=== PATIENT | female | born 1985 | race Caucasian/White ===

== ENCOUNTER 2017-10-16 22:45 | Inpatient (IN) | payer OTHER ==
[2017-10-17 01:03] LABS: ADD MAN DIFF? NO
[2017-10-17 01:15] LABS: BASOPHILS % 0.2 % (0.0-2.0); EOSINOPHILS % 0.3 % (0.0-7.0); HEMATOCRIT 38.3 % (37.0-47.0); HEMOGLOBIN 14.2 g/dl (12.0-16.0); IMMATURE GRANS #M 0.06 10^3/ul; IMMATURE GRANS % (M) 0.5 %; LYMPHOCYTES # 0.8 10^3/ul (0.8-2.9); LYMPHOCYTES % 5.9 % (15.0-51.0); MEAN CORPUSCULAR HEMOGLOBIN 32.2 pg (29.0-33.0); MEAN CORPUSCULAR HGB CONC 37.1 g/dl (32.0-37.0); MEAN CORPUSCULAR VOLUME 86.8 fl (82.0-101.0); MEAN PLATELET VOLUME 11.4 fl (7.4-10.4); MONOCYTE # 0.7 10^3/ul (0.3-0.9); MONOCYTES % 5.2 % (0.0-11.0); NEUTROPHIL # 11.6 10^3/ul (1.6-7.5); NEUTROPHILS % 87.9 % (39.0-77.0); PLATELET COUNT 219 10^3/UL (140-415); RED BLOOD COUNT 4.41 10^6/ul (4.20-5.40); RED CELL DISTRIBUTION WIDTH 13.6 % (11.5-14.5)
[2017-10-17 01:15] LABS: WHITE BLOOD COUNT 13.2 10^3/ul (4.8-10.8)
[2017-10-17 01:16] LABS: ADD UMIC YES; UR ASCORBIC ACID NEGATIVE (NEGATIVE); UR BILIRUBIN (Dip) NEGATIVE (NEGATIVE); UR BLOOD (Dip) NEGATIVE (NEGATIVE); UR CLARITY CLEAR (CLEAR); UR COLOR YELLOW (YELLOW); UR GLUCOSE (Dip) NEGATIVE (NEGATIVE); UR KETONES (Dip) TRACE mg/dL (NEGATIVE); UR LEUKOCYTE ESTERASE (Dip) NEGATIVE Leu/ul (NEGATIVE); UR MUCUS FEW /HPF (NONE SEEN); UR NITRITE (Dip) NEGATIVE (NEGATIVE); UR RBC 3 /HPF (0-5); UR SPECIFIC GRAVITY (Dip) 1.034 (1.003-1.030); UR SQUAMOUS EPITHELIAL CELL FEW /HPF (FEW); UR TOTAL PROTEIN (Dip) 2+ mg/dl (NEGATIVE); UR UROBILINOGEN (Dip) NEGATIVE (NEGATIVE); UR WBC 2 /HPF (0-5)
[2017-10-17 01:38] LABS: ALANINE AMINOTRANSFERASE 33 IU/L (13-69); ALBUMIN 4.6 g/dl (3.3-4.9); ALBUMIN/GLOBULIN RATIO 0.86; ALKALINE PHOSPHATASE 96 IU/L (42-121); ANION GAP 19 (8-16); ASPARTATE AMINO TRANSFERASE 104 IU/L (15-46); BILIRUBIN,INDIRECT 0.9 mg/dl (0-1.1); BILIRUBIN,TOTAL 0.9 mg/dl (0.2-1.3); BLOOD UREA NITROGEN 11 mg/dl (7-20); CALCIUM 7.2 mg/dl (8.4-10.2); CARBON DIOXIDE 21 mmol/L (21-31); CHLORIDE 102 mmol/L (97-110); CREATININE 0.54 mg/dl (0.44-1.00); GLUCOSE 124 mg/dl (70-220); LIPASE 1998 U/L (23-300); POTASSIUM 5.3 mmol/L (3.5-5.1); SODIUM 137 mmol/L (135-144); TOTAL PROTEIN 9.9 g/dl (6.1-8.1)
[2017-10-17] MEDS: SOD CHLORIDE 0.9% 1,000 ML IV (05:40)
[2017-10-17] MEDS: DEXTROSE 5%-0.9% NACL 1,000 ML IV ×2 (06:48→16:08)
[2017-10-17] MEDS: ACETAMINOPHEN 325 MG TAB PO ×3 (06:48→21:23)
[2017-10-17] MEDS ORDERED: METOCLOPRAMIDE 10 MG INJ IV (19:00)
[2017-10-17] MEDS ORDERED: ONDANSETRON 4 MG INJ IV (19:00)
[2017-10-17] MEDS ORDERED: NACL 0.9% 3 ML SYG IV (19:00)
[2017-10-17] MEDS ORDERED: morphine 2 MG INJ IV (19:00)
[2017-10-17] MEDS: CALCIUM GLUCONATE 10% 1 GM in DEXTROSE 5% 100 ML IVPB (19:48)
[2017-10-17] MEDS: MEROPENEM 500MG/50 ML (PMX) 50 ML IVPB (21:24)
[2017-10-18] MEDS: DEXTROSE 5%-0.9% NACL 1,000 ML IV ×3 (03:31→21:36)
[2017-10-18] MEDS: PANTOPRAZOLE 40 MG INJ IV (05:13)
[2017-10-18 05:48] LABS: ADD MAN DIFF? NO
[2017-10-18 05:58] LABS: WHITE BLOOD COUNT 9.3 10^3/ul (4.8-10.8)
[2017-10-18 05:58] LABS: BASOPHILS % 0.2 % (0.0-2.0); EOSINOPHILS # 0.1 10^3/ul (0.0-0.5); EOSINOPHILS % 0.8 % (0.0-7.0); HEMATOCRIT 34.9 % (37.0-47.0); HEMOGLOBIN 11.8 g/dl (12.0-16.0); IMMATURE GRANS #M 0.05 10^3/ul; IMMATURE GRANS % (M) 0.5 %; LYMPHOCYTES # 0.9 10^3/ul (0.8-2.9); LYMPHOCYTES % 9.2 % (15.0-51.0); MEAN CORPUSCULAR HGB CONC 33.8 g/dl (32.0-37.0); MEAN CORPUSCULAR VOLUME 88.8 fl (82.0-101.0); MEAN PLATELET VOLUME 11.6 fl (7.4-10.4); MONOCYTE # 0.5 10^3/ul (0.3-0.9); MONOCYTES % 5.7 % (0.0-11.0); NEUTROPHIL # 7.7 10^3/ul (1.6-7.5); NEUTROPHILS % 83.6 % (39.0-77.0); PLATELET COUNT 162 10^3/UL (140-415); RED BLOOD COUNT 3.93 10^6/ul (4.20-5.40); RED CELL DISTRIBUTION WIDTH 14.2 % (11.5-14.5)
[2017-10-18 06:22] LABS: ALANINE AMINOTRANSFERASE 35 IU/L (13-69); ALBUMIN 3.2 g/dl (3.3-4.9); ALBUMIN/GLOBULIN RATIO 0.96; ALKALINE PHOSPHATASE 69 IU/L (42-121); ANION GAP 11 (8-16); ASPARTATE AMINO TRANSFERASE 35 IU/L (15-46); BILIRUBIN,INDIRECT 0.7 mg/dl (0-1.1); BILIRUBIN,TOTAL 0.7 mg/dl (0.2-1.3); BLOOD UREA NITROGEN 8 mg/dl (7-20); CALCIUM 6.6 mg/dl (8.4-10.2); CARBON DIOXIDE 23 mmol/L (21-31); CHLORIDE 110 mmol/L (97-110); CREATININE 0.59 mg/dl (0.44-1.00); GLUCOSE 132 mg/dl (70-220); POTASSIUM 3.6 mmol/L (3.5-5.1); SODIUM 140 mmol/L (135-144); TOTAL PROTEIN 6.5 g/dl (6.1-8.1)
[2017-10-18 06:32] LABS: CHOLESTEROL 194 mg/dl (100-200)
[2017-10-18 06:32] LABS: CHOL/HDL RATIO 8.8 RATIO; HDL CHOLESTEROL 22 mg/dl (34-82)
[2017-10-18 06:34] LABS: PHOSPHORUS 2.3 mg/dl (2.5-4.9)
[2017-10-18 06:34] LABS: LIPASE 766 U/L (23-300); MAGNESIUM 2.2 mg/dl (1.7-2.5)
[2017-10-18 07:06] LABS: LDL CHOLESTEROL,CALCULATED 53 mg/dl; TRIGLYCERIDES 596 mg/dl (0-149)
[2017-10-18] MEDS: MEROPENEM 500MG/50 ML (PMX) 50 ML IVPB ×2 (08:19→20:49)
[2017-10-18] MEDS: ACETAMINOPHEN 325 MG TAB PO ×2 (08:19→20:49)
[2017-10-18] MEDS: CALCIUM GLUCONATE 10% 2 GM in DEXTROSE 5% 100 ML IVPB (10:59)
[2017-10-18] MEDS: GEMFIBROZIL 600 MG TAB PO ×2 (11:01→20:49)
[2017-10-18] MEDS: POTASSIUM PHOSPHATE 40 MEQ in SOD CHLORIDE 0.9% 250 ML IVPB (13:39)
[2017-10-19] MEDS: PANTOPRAZOLE 40 MG INJ IV (05:21)
[2017-10-19] MEDS: DEXTROSE 5%-0.9% NACL 1,000 ML IV ×2 (06:42→17:09)
[2017-10-19 06:52] LABS: ADD MAN DIFF? NO
[2017-10-19 06:59] LABS: WHITE BLOOD COUNT 9.1 10^3/ul (4.8-10.8)
[2017-10-19 06:59] LABS: BASOPHILS % 0.3 % (0.0-2.0); EOSINOPHILS # 0.2 10^3/ul (0.0-0.5); EOSINOPHILS % 1.8 % (0.0-7.0); HEMATOCRIT 33.4 % (37.0-47.0); HEMOGLOBIN 10.9 g/dl (12.0-16.0); LYMPHOCYTES # 1.1 10^3/ul (0.8-2.9); LYMPHOCYTES % 12.5 % (15.0-51.0); MEAN CORPUSCULAR HEMOGLOBIN 29.1 pg (29.0-33.0); MEAN CORPUSCULAR HGB CONC 32.6 g/dl (32.0-37.0); MEAN CORPUSCULAR VOLUME 89.1 fl (82.0-101.0); MONOCYTE # 0.6 10^3/ul (0.3-0.9); MONOCYTES % 6.9 % (0.0-11.0); NEUTROPHIL # 7.1 10^3/ul (1.6-7.5); NEUTROPHILS % 78.3 % (39.0-77.0); PLATELET COUNT 165 10^3/UL (140-415); RED BLOOD COUNT 3.75 10^6/ul (4.20-5.40); RED CELL DISTRIBUTION WIDTH 14.4 % (11.5-14.5)
[2017-10-19 07:30] LABS: MAGNESIUM 2.2 mg/dl (1.7-2.5)
[2017-10-19 07:30] LABS: PHOSPHORUS 2.7 mg/dl (2.5-4.9)
[2017-10-19 07:36] LABS: ANION GAP 12 (8-16); BLOOD UREA NITROGEN 7 mg/dl (7-20); CALCIUM 7.7 mg/dl (8.4-10.2); CARBON DIOXIDE 23 mmol/L (21-31); CHLORIDE 110 mmol/L (97-110); CREATININE 0.62 mg/dl (0.44-1.00); GLUCOSE 118 mg/dl (70-220); LIPASE 286 U/L (23-300); POTASSIUM 4.1 mmol/L (3.5-5.1); SODIUM 141 mmol/L (135-144)
[2017-10-19] MEDS: MEROPENEM 500MG/50 ML (PMX) 50 ML IVPB ×2 (08:13→20:38)
[2017-10-19] MEDS: GEMFIBROZIL 600 MG TAB PO ×2 (08:13→20:38)
[2017-10-19] MEDS: CALCIUM CARBONATE 1.25 GM TAB PO ×2 (12:21→20:38)
[2017-10-19] MEDS ORDERED: morphine LIQ (10 MG/5 ML) CUP PO (17:30)
[2017-10-19] MEDS: ACETAMINOPHEN 325 MG TAB PO (20:38)
[2017-10-20] MEDS: PANTOPRAZOLE 40 MG INJ IV (05:44)
[2017-10-20] MEDS: DEXTROSE 5%-0.9% NACL 1,000 ML IV (05:44)
[2017-10-20 07:06] LABS: ALANINE AMINOTRANSFERASE 103 IU/L (13-69); ALBUMIN 3.3 g/dl (3.3-4.9); ALBUMIN/GLOBULIN RATIO 0.86; ALKALINE PHOSPHATASE 117 IU/L (42-121); ANION GAP 15 (8-16); ASPARTATE AMINO TRANSFERASE 77 IU/L (15-46); BILIRUBIN,INDIRECT 0.8 mg/dl (0-1.1); BILIRUBIN,TOTAL 0.8 mg/dl (0.2-1.3); BLOOD UREA NITROGEN 6 mg/dl (7-20); CALCIUM 8.2 mg/dl (8.4-10.2); CARBON DIOXIDE 24 mmol/L (21-31); CHLORIDE 107 mmol/L (97-110); GLUCOSE 106 mg/dl (70-220); POTASSIUM 3.8 mmol/L (3.5-5.1); SODIUM 142 mmol/L (135-144); TOTAL PROTEIN 7.1 g/dl (6.1-8.1)
[2017-10-20 07:11] LABS: PHOSPHORUS 3.8 mg/dl (2.5-4.9)
[2017-10-20 07:11] LABS: MAGNESIUM 2.1 mg/dl (1.7-2.5)
[2017-10-20] MEDS: MEROPENEM 500MG/50 ML (PMX) 50 ML IVPB (09:09)
[2017-10-20] MEDS: CALCIUM CARBONATE 1.25 GM TAB PO ×2 (09:10→12:56)
[2017-10-20] MEDS: GEMFIBROZIL 600 MG TAB PO (09:10)
[2017-10-20 11:31] LABS: LIPASE 175 U/L (23-300)
[2017-10-20 12:25] LABS: TRIGLYCERIDES 315 mg/dl (0-149)
== END 2017-10-20 17:57 | disposition home or self-care (01) | DRG 871 ==
LOC: FTE 22:45 → MS3 10-17 03:30
DX: A41.9 Sepsis, unspecified organism (principal); K85.90 Acute pancreatitis without necrosis or infection, unspecified; E87.5 Hyperkalemia; E83.51 Hypocalcemia; K76.0 Fatty (change of) liver, not elsewhere classified; F41.9 Anxiety disorder, unspecified; E78.1 Pure hyperglyceridemia
CPT/HCPCS: 36415; 74176; 80048; 80053; 80061; 81001; 81025; 83690; 83735; 84100; 84478; 85025; 99285-25